=== PATIENT | female | born 1950 | race Caucasian/White ===

== ENCOUNTER 2017-01-21 05:02 | Day surgery (SDC) | payer MEDICARE, OTHER ==
[~2017-01-21 05:02] MED LIST: ACET500CAP PO; ALEVE220 MG PO; FISH-EPA1000 MG PO; FLONASE NAS; FOSAMAX70 MG PO; LAMICTAL150 MG PO; LOP50 PO; MAX25 PO; MULTIPLE VIT PO; NEUR100 PO; PROTONIX PO; SYSTANE OPH; ZANTAC300 MG PO; ZYRTEC ALLGY10 MG PO
== END 2017-01-21 07:22 | disposition home or self-care (01) ==
LOC: SDC 05:02
PROVIDERS: Orthopaedic Surgery
PROC: 3E0R3CZ (ICD-10-PCS; 2017-01-21)
PROC: 3E0R33Z Introduction of Anti-inflammatory into Spinal Canal, Percutaneous Approach (ICD-10-PCS; principal; 2017-01-21 07:00)
DX: M54.16 Radiculopathy, lumbar region (principal); I10 Essential (primary) hypertension; M19.90 Unspecified osteoarthritis, unspecified site; K21.9 Gastro-esophageal reflux disease without esophagitis; F41.9 Anxiety disorder, unspecified; F31.9 Bipolar disorder, unspecified; Z98.890 Other specified postprocedural states
CPT/HCPCS: J1040; J2250; J2405; J3010; Q9967